=== PATIENT | male | born 1995 | race Two or more races ===

== ENCOUNTER 2021-08-21 10:24 | Outpatient (RCR) | payer OTHER | END 2021-08-23 | LOC: M ST 10:24 | PROVIDERS: ATTEND Physician Assistant | DX: F98.5 Adult onset fluency disorder (principal) ==

== ENCOUNTER 2021-09-09 14:54 | Outpatient (RCR) | payer OTHER | END 2021-09-22 | LOC: M ST 14:54 | PROVIDERS: ATTEND Physician Assistant | DX: R47.82 Fluency disorder in conditions classified elsewhere (principal) ==

== ENCOUNTER 2022-01-18 13:00 | Outpatient (RCR) | payer OTHER | END 2022-01-21 | LOC: M ST 13:00 | PROVIDERS: ATTEND Physician Assistant | DX: R45.7 State of emotional shock and stress, unspecified (principal); R47.82 Fluency disorder in conditions classified elsewhere ==

== ENCOUNTER 2022-02-19 14:15 | Outpatient (RCR) | payer OTHER | END 2022-02-20 | LOC: M ST 14:15 | PROVIDERS: ATTEND Physician Assistant | DX: R47.89 Other speech disturbances (principal) ==

== ENCOUNTER 2022-02-23 12:14 | Emergency (ER) | payer OTHER ==
[~2022-02-23] VITALS: Ht 167.6 cm; Wt 71.4 kg
[2022-02-23] MEDS ORDERED: IMIT50TA PO (12:24)
[2022-02-23] MEDS ORDERED: MIRA3350 PO (12:24)
[2022-02-23] MEDS ORDERED: PROZ40CA PO (12:24)
[2022-02-23] MEDS ORDERED: METH-1164 PO (12:24)
[2022-02-23] MEDS ORDERED: TOPA100T12 PO (12:24)
[2022-02-23 13:58] LABS: HEMATOCRIT 44.3 % (42.0-52.0); HEMOGLOBIN 15.2 g/dl (13.5-17.5); MEAN CORPUSCULAR HEMOGLOBIN 26.4 pg (27.0-33.0); MEAN CORPUSCULAR HGB CONC 34.3 g/dl (32.0-36.5); PLATELET COUNT, AUTOMATED 238 10^3/uL (150-450); RED BLOOD COUNT 5.75 10^6/uL (4.30-6.10); WHITE BLOOD COUNT 8.1 10^3/uL (4.0-10.0)
[2022-02-23 14:39] LABS: AMPHETAMINES LEVEL URINE NEGATIVE (NEGATIVE); BARBITURATES URINE NEGATIVE (NEGATIVE); BENZODIAZEPINES URINE NEGATIVE (NEGATIVE); CANNABINOIDS URINE POSITIVE (NEGATIVE); COCAINE METABOLITE URINE NEGATIVE (NEGATIVE); METHADONE URINE NEGATIVE (NEGATIVE); OPIATES URINE NEGATIVE (NEGATIVE); PHENCYCLIDINE URINE NEGATIVE (NEGATIVE)
[2022-02-23 14:40] LABS: ACETAMINOPHEN LEVEL < 2.0 UG/ML (10.0-30.0); ALBUMIN 4.3 GM/DL (3.2-5.2); ALT/SGPT 29 U/L (12-78); BILIRUBIN,DIRECT 0.1 MG/DL (0.0-0.2); BILIRUBIN,TOTAL 0.4 MG/DL (0.2-1.0); BLOOD UREA NITROGEN 14 MG/DL (7-18); CALCIUM LEVEL 9.9 MG/DL (8.5-10.1); CARBON DIOXIDE LEVEL 29 MEQ/L (21-32); CHLORIDE LEVEL 104 MEQ/L (98-107); CREATININE FOR GFR 1.08 MG/DL (0.70-1.30); ETHYL ALCOHOL (ETHANOL) < 0.003 % (0.000-0.010); GLOMERULAR FILTRATION RATE > 60.0 (>60); GLUCOSE, FASTING 81 MG/DL (70-100); POTASSIUM SERUM 4.3 MEQ/L (3.5-5.1); SALICYLATE LEVEL < 1.7 MG/DL (5.0-30.0); SODIUM LEVEL 136 MEQ/L (136-145); TOTAL PROTEIN 8.8 GM/DL (6.4-8.2)
[2022-02-23 14:44] LABS: RSV AMPLIFICATION NEGATIVE (NEGATIVE)
[2022-02-23 19:05] VITALS: BP 122/66
== END 2022-02-23 19:07 | disposition home or self-care (01) ==
LOC: M ED 12:14
DX: F32.A Depression, unspecified (principal); R45.851 Suicidal ideations; Z62.819 Personal history of unspecified abuse in childhood; Z79.899 Other long term (current) drug therapy

== ENCOUNTER 2022-03-19 15:00 | Outpatient (RCR) | payer OTHER ==
[~2022-03-19 15:00] MED LIST: IMIT50TA PO; METH-1164 PO; MIRA3350 PO; PROZ40CA PO; TOPA100T12 PO
== END 2022-03-23 ==
LOC: M ST 15:00
PROVIDERS: ATTEND Physician Assistant
DX: F98.5 Adult onset fluency disorder (principal)